=== PATIENT | female | born 1965 | race Caucasian/White ===

== ENCOUNTER → 2024-02-17 06:24 | Day surgery (SDC) | payer OTHER, SELFPAY | LOC: GI 06:24 | PROVIDERS: ATTENDING PHYSICIAN Internal Medicine Gastroenterology; FAMILY PHYSICIAN Nurse Practitioner Adult Health | DX: K21.9 Gastro-esophageal reflux disease without esophagitis (principal); K44.9 Diaphragmatic hernia without obstruction or gangrene; K31.7 Polyp of stomach and duodenum; Q39.9 Congenital malformation of esophagus, unspecified; R11.10 Vomiting, unspecified; R12 Heartburn | CPT/HCPCS: 43239; 88305 ==

== ENCOUNTER 2024-08-29 06:22 | Day surgery (SDC) | payer OTHER, SELFPAY ==
[2024-08-24 09:25] VITALS: BMI 31.5
[2024-08-24 10:54] LABS: Hematocrit 39.1 % (37.0-47.0); Hemoglobin 13.1 g/dL (12.0-16.0); Mean Corp Hgb Conc. 33.5 g/dL (33.0-37.0); Mean Corpuscular Volume 86.7 fL (81.0-99.0); Mean Platelet Volume 11.1 fL (7.4-10.4); Platelet Count 266 10^3/uL (130-400); Red Blood Cell Count 4.51 10^6/uL (4.20-5.40); Red Cell Dist. Width 14.6 % (11.5-14.5); White Blood Cell Count 4.3 10^3/uL (4.8-10.8)
[2024-08-24 11:23] LABS: Blood Urea Nitrogen 11 mg/dl (7-17); Calcium 10.1 mg/dl (8.4-10.2); Carbon Dioxide 22 mmol/L (22-30); Chloride 105 mmol/L (98-107); Estimated Creatinine Clearance 72 ml/min; Glucose 88 mg/dl (70-99); Potassium 4.9 mmol/L (3.5-5.1); Sodium 141 mmol/L (135-145); eGFR > 60.00
[2024-08-29] VITALS (16 sets, daily range): BP systolic 119–156; BP diastolic 62–98; BMI 31.5
[2024-08-29] MEDS: TYLENOL 1000 MG PO (09:10)
[2024-08-29] MEDS: NORMOSOL-R/PLASMALYTE-A 1000 IV ×2 (09:10→16:17)
--- NOTE | 2024-08-29 11:59 | W.IMMPOSTOP ---
Addendum entered and electronically signed by Ruddy Sesay MD 08/29/24 12:19:
[facility]#[id number]
Original Note:
Surgical Immed Post Op Note
-
Primary Surgeon: Shama
Assisting Surgeon: ARNULFO Romero
Pre-op Diagnosis: Hiatal hernia, GERD
Post-op Diagnosis: Hiatal hernia, GERD
Procedure Performed: Laparoscopic hiatal hernia repair and Pérez fundoplication
Anesthesia Type: General
Specimen / Cultures: None
Estimated Blood Loss: 7 cc
Complications: None
Operative Findings:
1. Small type I hiatal hernia easily reduced, sticky inflammation from esophagitis
2. > 3 cm esophageal length, bilateral vagi identified and protected, no pleural violation
3. Posterior crural closure with 0 silk x 2 and anterior closure with 0 silk x 1
4. Loose floppy 2 cm Pérez fundoplication over 60 [place] bougie
[2024-08-29] MEDS: DILAUDID 0.5 MG IV (13:30)
--- NOTE | 2024-08-29 15:45 | PTCARENOTE ---
Received pt from PACU.Report from Leah HOOKS. Pt drowsy but easily arousable to verbal stimuli. Pt c/o tenderness in abd and shoulder/ gas pain, medicated with Ofirmev per orders. Pt VSS, 98% on 2L. Pt has 5 lap sites with NIEVES barba. Pt oriented
to room, call baptiste within reach, plan of care continues.
[2024-08-29] MEDS: OFIRMEV 100 IV ×2 (16:16→21:42)
[2024-08-30] MEDS: NORMOSOL-R/PLASMALYTE-A 1000 IV ×3 (01:24→23:15)
[2024-08-30 03:15] VITALS: BP 134/84
[2024-08-30] MEDS: OFIRMEV 100 IV (04:41)
--- NOTE | 2024-08-30 07:25 | W.PN.GS2 ---
Today's Communication / Plan
-
-- Clears.ADAT to fulls and then soft food diet this evening if doing well
-- Pain control: Tylenol, Toradol if Hb OK, and Oxycodone
-- Maintain IVF
-- Home meds
-- DVT: Lovenox if Hb OK
-- DC today pending progression
Assessment / Plan
-
Patient is a 58 yo F POD#1 s/p laparoscopic hiatal hernia repair and Pérez fundoplication
AVSS
Labs pending
No major postoperative concerns. Plan for dietary advancement throughout the day. Discharge today pending tolerance of diet, pain control, ambulatory status.
-- Clears.ADAT to fulls and then soft food diet this evening if doing well
-- Pain control: Tylenol, Toradol if Hb OK, and Oxycodone
-- Maintain IVF
-- OOB/ambulate
-- Home meds
-- DVT: Lovenox if Hb OK
-- DC today pending progression
Subjective Data
-
Date of Service: August 30, 2024
Imaging returns. Reports some chest and shoulder soreness. Reports a slight sore throat. No severe reflux symptoms. No nausea or vomiting. Afebrile.
Objective Data
-
Intake and Output
08/29/24 08/30/24 08/31/24
06:59 06:59 06:59
Intake Total 1400 / 1400
Output Total 1400 / 1400
Balance 0 / 0
Intake:
IV fluids (Total) 1200 / 1200
IV piggybacks 200 / 200
Output:
Urine, Voided 1400 / 1400
Vital Signs
Temp Pulse Resp BP Pulse Ox
97.8 F 85 16 134/84 98
08/30/24 03:15 08/30/24 03:15 08/30/24 03:15 08/30/24 03:15 08/30/24 03:15
Calcium 10.1 mg/dl (8.4-10.2) 08/24/24 09:22
Physical Exam
-
Gen: NAD
Abd: soft, minimal tenderness, ND/obese, non-peritoneal, incisions c/d/i - no erythema, ecchymosis, or drainage
[2024-08-30 08:13] VITALS: BP 140/79
[2024-08-30] MEDS: DIOVAN 80 MG PO (08:18)
[2024-08-30 09:02] LABS: Hematocrit 36.4 % (37.0-47.0); Mean Corpuscular Hgb 28.8 pg (27.0-31.0); Mean Corpuscular Volume 87.3 fL (81.0-99.0); Platelet Count 297 10^3/uL (130-400); Red Blood Cell Count 4.17 10^6/uL (4.20-5.40); Red Cell Dist. Width 14.6 % (11.5-14.5); White Blood Cell Count 10.1 10^3/uL (4.8-10.8)
[2024-08-30 10:11] LABS: Blood Urea Nitrogen 9 mg/dl (7-17); Calcium 9.1 mg/dl (8.4-10.2); Carbon Dioxide 24 mmol/L (22-30); Chloride 104 mmol/L (98-107); Estimated Creatinine Clearance 72 ml/min; Glucose 90 mg/dl (70-99); Potassium 4.4 mmol/L (3.5-5.1); Sodium 142 mmol/L (135-145); eGFR > 60.00
[2024-08-30] MEDS: TORADOL 15 MG IV ×2 (11:04→20:41)
[2024-08-30] MEDS: OFIRMEV IV (15:12)
[2024-08-30 15:39] VITALS: BP 122/73
[2024-08-30 23:20] VITALS: BP 116/66
--- NOTE | 2024-08-31 07:20 | W.PN.GS2 ---
Today's Communication / Plan
-
-- DC today
-- Dietary progression as outpatient
Assessment / Plan
-
Patient is a 58 yo F POD#2 s/p laparoscopic hiatal hernia repair and Pérez fundoplication
AVSS
Labs pending
No major postoperative concerns. Plan for DC today.
-- Fulls
-- Pain control: Tylenol, Toradol, and Oxycodone
-- DC IVF
-- OOB/ambulate
-- Home meds, no need for antacids
-- DVT: Lovenox if Hb OK
-- DC today
Subjective Data
-
Date of Service: August 31, 2024
No complaints. Tolerating full liquids. No worsening dysphagia. No nausea or vomiting. Chest and shoulder soreness improving. No fevers or chills. MMM. Voiding.
Objective Data
-
Intake and Output
08/30/24 08/31/24 09/01/24
06:59 06:59 06:59
Intake Total 1400 / 1400 1080 / 1080
Output Total 1400 / 1400
Balance 0 / 0 1080 / 1080
Intake:
Oral fluids 1080 / 1080
IV fluids (Total) 1200 / 1200
IV piggybacks 200 / 200
Output:
Urine, Voided 1400 / 1400
Other:
Number of approximated MODERATE 2
amounts of urine
Vital Signs
Temp Pulse Resp BP Pulse Ox
98.5 F 75 16 116/66 96
08/30/24 23:20 08/30/24 23:20 08/30/24 23:20 08/30/24 23:20 08/30/24 23:20
Lab Results
08/30/24 07:57
08/30/24 07:57
Calcium 9.1 mg/dl (8.4-10.2) 08/30/24 07:57
Physical Exam
-
Gen: NAD
Abd: soft, NT/ND, non-peritoneal, incisions c/d/i - mild ecchymosis at larger port site, no erythema or drainage
--- NOTE | 2024-08-31 07:24 | W.DS.TRANS ---
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
-
Discharge Instructions:
Sleep Apnea Risk Low
Discharge Diagnosis/Procedures Laparoscopic hiatal hernia repair with
fundoplication
Diet Other diet
Additional Diets Follow a full liquid diet for 3 to 4 days. Okay
to advance to a soft food diet. Avoid large
cuts of meat, large breads, and dry pastas.
Chew food thoroughly. Eat small frequent meals
throughout the day. Avoid drinking with straws
and carbonated beverages as this may increase
bloating.
Activity No strenuous activity
Additional Activity No heavy lifting (>20 lbs) or strenuous
activities for 4 weeks postoperatively
Driving Restrictions No driving if too sore or taking narcotics
Bathing Restrictions OK to Shower
Wound Care Keep incisions clean and dry. Glue will flake
off in 2 to 3 weeks. Stitches will dissolve.
Use ice to the abdomen to reduce any bruising or
swelling.
Instructions:
Stand-Alone Forms:
Changes to Home Medications: Yes
Discharge Medications:
DC Medications w/original date entered in [facility]
celecoxib 200 mg capsule (Celebrex) 200 mg PO BID Pain 08/22/24
ferrous sulfate 134 mg (27 mg iron) tablet 134 mg PO DAILY Supplement 08/22/24
loqkaodn-ihpf-kjir 8 mg-folic 400 mcg-K 50 mcg-lutein 300 mcg tablet (Centrum Silver Women) 1 tab PO DAILY Supplement 08/22/24
valsartan 80 mg tablet 80 mg PO DAILY Blood Pressure 08/22/24
acetaminophen 325 mg tablet 650 mg (2 x 325 mg) PO Q4HPRN PRN mild pain #1 tab 08/31/24
tramadol 50 mg tablet 50 mg PO Q6HPRN PRN severe pain/breakthrough pain #10 tabs 08/31/24
Home Medication Changes
Pending Results: No
[2024-08-31 07:45] VITALS: BP 157/95
[2024-08-31] MEDS: DIOVAN 80 MG PO (10:00)
[2024-08-31 10:20] VITALS: BP 157/90
== END 2024-08-31 11:00 | disposition home or self-care (01) ==
LOC: SDS 06:22
PROVIDERS: ATTENDING PHYSICIAN Surgery; FAMILY PHYSICIAN Nurse Practitioner Adult Health; REFERRING PHYSICIAN Internal Medicine Rheumatology
DX: K44.9 Diaphragmatic hernia without obstruction or gangrene (principal); K21.9 Gastro-esophageal reflux disease without esophagitis
CPT/HCPCS: 43281; 36415; 71046; 80048; 85027; 86850; 86900; 86901; 93005; C1729